=== PATIENT | female | born 1990 | race Caucasian/White ===

== ENCOUNTER 2017-01-23 12:01 | Emergency (ER) | payer BC, OTHER ==
[~2017-01-23] VITALS: Ht 175.3 cm; Wt 112.5 kg
[2017-01-23 12:04] VITALS: BP 97/74
--- NOTE | 2017-01-23 12:07 | NUR ---
PT AMBULATED TO BED 7 AT THIS TIME.
--- NOTE | 2017-01-23 12:19 | NUR ---
PT BIB SELF C/O THROAT PAIN X YESTERDAY, W/ "TINGLING SENSATION" IN THROAT FOR 2 WEEKS. PT STATES THAT IT HURTS WHEN SHE SWALLOWS.PT TOOK IBUPROFEN AND IT HELPS HER W/ THE PAIN.THROAT IS REDDENED.DENIES ANY MEDICAL HX.PT HAS RUNNY NOSE THAT STARTED YESTERDAY.DENIES CP/SOB/N/V/F.AAPX4;NO ACUTE DISTRESS NOTED AT THIS TIME;HOB ELEVATED;SAFETY PREACUTION INSTITUTED;NEEDS ATTENDED;DR BORRERO AT BEDSIDE.
--- NOTE | 2017-01-23 12:30 | NUR ---
Patient discharged with v/s stable. Written and verbal after care instructions given and explained. Patient alert, oriented and verbalized understanding of instructions. Ambulatory with steady gait. All questions addressed prior to discharge. ID band removed. Patient advised to follow up with PMD. Rx of AMOXICILLIN given. Patient educated on indication of medication including possible reaction and side effects. Opportunity to ask questions provided and answered.ADVISED PT TO EAT FOODS RICH IN VIT.C TO BOOST IMMUNE SYSTEM.
[2017-01-23 12:31] VITALS: BP 97/74
== END 2017-01-23 12:41 | disposition home or self-care (01) ==
LOC: MED 12:02
DX: J02.9 Acute pharyngitis, unspecified (principal)

== ENCOUNTER 2017-02-20 12:14 | Emergency (ER) | payer BC ==
[~2017-02-20] VITALS: Ht 175.3 cm; Wt 111.1 kg
[2017-02-20 12:42] VITALS: BP 97/51
--- NOTE | 2017-02-20 14:28 | NUR ---
Patient to bed 08.
--- NOTE | 2017-02-20 14:51 | NUR ---
/ presents to ED for evaluation of cough that started yesterday. Pt also c/o N/V/D. Pt states she was vomiting while in the shower and had diarrhea x1 yesterday. Pt also c/o runny nose, sore throat, pain to left side of neck, and left flank area. Patient c/o productive cough with green phlegm production. Lungs clear bilaterally. Abdomen soft, non tender, active bowel sounds x4 quadrants. Patient is AOX4, ambulates with steady gait. VSS.
--- NOTE | 2017-02-20 15:16 | NUR ---
Patient being evaluated by physician at bedside.
[2017-02-20 16:00] VITALS: BP 113/71
--- NOTE | 2017-02-20 16:00 | NUR ---
Chart checked and completed. The patient's care was reviewed and supervised by Ilan Cronin RN.
--- NOTE | 2017-02-20 16:00 | NUR ---
Patient discharged with v/s stable. Written and verbal after care instructions given and explained. Patient alert, oriented and verbalized understanding of instructions. Ambulatory with steady gait. All questions addressed prior to discharge. ID band removed. Patient advised to follow up with PMD. Rx of AUGMENTIN,DEXTROMETHORPHAN/PROMETHAZINE HCL given. Patient educated on indication of medication including possible reaction and side effects. Opportunity to ask questions provided and answered.
== END 2017-02-20 16:00 | disposition home or self-care (01) ==
LOC: MED 12:14
DX: J03.90 Acute tonsillitis, unspecified (principal)
CPT/HCPCS: 71010; 99283